=== PATIENT | male | born 1985 | race Caucasian/White ===

== ENCOUNTER 2024-12-16 22:06 | Emergency (ER) | payer OTHER, SELFPAY ==
[2024-12-16 22:07] VITALS: BP 132/85; PULSE 84; RESP 16; TEMP 36.6; O2SAT 98; BMI 29.4
--- NOTE | 2024-12-16 22:25 | CT_ITS ---
PROCEDURE: CT of the abdomen/pelvis with IV contrast. REASON FOR EXAM: Back trauma. Fell down steps 2 days ago. Right sided back pain. TECHNIQUE: After the intravenous administration of 80 cc Isovue 370, contiguous axial CT images were obtained through the abdomen/pelvis. Sagittal and coronal reformats were created. COMPARISON: None available FINDINGS: The lumbar and lower thoracic vertebral bodies are intact. Central spinal canal detail is limited. Proximal femurs are intact. Mild degenerative changes in the hip joints. No displaced pelvic fracture. Minimally displaced fractures of the right L2 and L3 transverse processes. The included lower ribs are intact. Heart is not enlarged. No sizable pericardial effusion. Lower lungs clear. The abdominal aorta is normal in caliber. No abdominal/pelvic adenopathy or ascites. No large abdominal wall defect. Tiny fat containing umbilical hernia. No focal abnormality of the urinary bladder. No abnormally dilated bowel segments or free intraperitoneal air. Scattered patchy wall thickening of the colon may be due to lack of distention versus peristalsis or chronic diverticular disease. Moderate stool in the colon. Appendicoliths are present. No findings of acute appendicitis. Patchy wall thickening of the stomach may be due to lack of distention versus peristalsis. No calcified gallstones or abnormal dilation of the biliary tree. 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 The liver, adrenal glands, spleen, and pancreas show no specific abnormality. The kidneys are symmetric in size and enhancement. No solid renal mass or evidence of parenchymal injury. CT/Abdomen/Pelvis W IV Cont ONLY IMPRESSION: Minimally displaced fractures of the right L2 and L3 transverse processes. No lumbar or lower thoracic vertebral body fracture. No solid organ injuries or free intraperitoneal air. Appendicoliths are present. No evidence of acute appendicitis. Lower ribs are intact. One or more dose reduction techniques were used (e.g., Automated exposure contr ol, adjustment of the mA and/or kV according to patient size, use of iterative reconstruction technique). Reading Location: [facility]
--- NOTE | 2024-12-16 22:26 | EDS_ITS ---
HPI History of Present Illness Chief Complaint: Fall Informant: patient and spouse/S.O. Narrative Narrative: Mechanical fall 2 days ago going down concrete steps. Slippery. No head injuries. Pain injury right flank. No urinary symptoms no hematuria. Pain with movement. Using ibuprofen Advil last dose this morning. No anticoagulation medicines. Prior similar symptoms: No PFSH PFSH Medical History no medical history Home Medications ?Medication ?Instructions ?Recorded ?Last Taken ?Type No Known/Unobtainable [No Known 7 Unknown History Home Medications] Allergy/AdvReac Type Severity Reaction Status Date / Time bee pollen Allergy Anaphylaxis Verified 12/16/24 22:10 ranitidine (From Zantac) Allergy Nausea/Vom/ Verified 12/16/24 22:10 Diarrhea Social History Smoking Status: Never smoker ROS ROS ED Constitutional Constitutional ED: Denies chills, fever(s) or sweats ENT ENT ED: Denies sore throat Cardiovascular Cardiovascular: Denies chest pain, leg edema, palpitations or racing heartbeat Respiratory/Chest Respiratory/Chest: Denies cough, dyspnea or dyspnea on exertion Gastrointestinal Gastrointestinal: Denies abdominal pain, diarrhea, nausea or vomiting Genitourinary Genitourinary ED: Denies dysuria, hematuria or urinary frequency Musculoskeletal Musculoskeletal: Reports back pain; Denies extremity pain or neck pain Integumentary Denies rash or wounds Neurologic Neurologic: Denies headache(s), paresthesias or weakness EXAM Physical Exam Const Vital Signs: 12/16/24 22:07 12/16/24 22:34 Temperature 97.9 F Temperature Source Temporal Pulse Rate 84 Respiratory Rate 16 Respiratory Effort Normal Non-Labored Respiratory Depth Normal Respiratory Pattern Normal Blood Pressure 132/85 H Blood Pressure Mean 100 Pulse Ox 98 Oxygen Delivery Method Room Air Room Air Positive well nourished and well developed General Appearance ED: well developed HEENT Reports moist mucous membranes normocephalic and atraumatic Eyes General Eye ED: Yes normal appearance of both eyes Neck full ROM Chest Wall Chest: Negative for tenderness Resp normal respiratory effort and normal air movement Effort and Inspection: symmetric chest movement; Negative for respiratory distress Cardio regular rate, regular rhythm and no murmurs Peripheral Pulses: pulses 2+ throughout GI normal to inspection, nondistended, normoactive bowel sounds and non-tender Palpation: Negative for guarding or rebound tenderness present Back/Spine Back/Spine Narrative: No midline tenderness there is tender palpation right flank below the kidney region. No ecchymosis noted. Extremity normal to inspection General Extremety ED: Negative for edema or tenderness General Extremity: Negative for edema Neuro oriented x3 and no sensory deficits noted Sensorium / Orientation: awake and alert Skin no rashes or lesions noted and no wounds MDM MDM MDM Narrative Medical decision making narrative: Interventions / MDM: Differential diagnosis: Sprain fracture Diagnosis considered but do not suspect: Organ injury however CT negative. My EKG interpretation: N/A Imaging independently reviewed and interpreted by myself: CT scan abdomen pelvis IV contrast: Nondisplaced right L2-L3 transverse process fracture. No organ injury. Appendicolith noted. [employer] SALESPERSON shunt tubing noted. External documents reviewed: N/A Test considered but not ordered:N/A ED course: Mechanical fall direct injury low right side of the back. Denies any hematuria. With mechanism of injury, contrast IV scan abdomen pelvis for trauma rule out. Basic labs obtained. He declines any medications. 2340: Labs stable urine negative. CT scan on displaced L2-L3 transverse process fracture. Appendicolith noted. No abdominal pain. Discussed findings, he declines any stronger pain medications. Will continue Advil. He will be given follow-up with spine. All questions were answered. Re-evaluation: stable Disposition discussed with patient/family/significant other: Patient and spouse Case discussed with consulting clinician: N/A This note was generated with [employer] dictation software. It may contain incorrect words, spelling, and punctuation that were not noted in checking the note before signing. Lab Data Attestation: I reviewed the patient's lab results. Labs: Laboratory Results - last 24 hr 12/16/24 12/16/24 21:43 22:40 WBC 8.1 RBC 4.95 Hgb 15.5 Hct 43.9 MCV 88.7 MCH 31.3 MCHC 35.3 RDW Std Deviation 41.1 RDW Coeff of Sushila 12.6 Plt Count 279 MPV 10.9 Immature Gran % (Auto) 0.400 Neut % (Auto) 59.6 Lymph % (Auto) 30.8 Wolfe % (Auto) 7.3 Eos % (Auto) 1.5 Baso % (Auto) 0.4 Absolute Neuts (auto) 4.9 Absolute Lymphs (auto) 2.50 Nucleated RBC % 0 Sodium 141 Potassium 3.5 Chloride 105 Carbon Dioxide 31.0 Anion Gap 5 BUN 10 Creatinine 1.07 Estim Creat Clear Calc 101.99 Est GFR (MDRD) Af Amer 98 Est GFR (MDRD) Non-Af 81 BUN/Creatinine Ratio 9.3 L Glucose 95 Calcium 8.9 Urine Color Yellow Urine Clarity Clear Urine pH 6.0 Ur Specific Dewey 1.015 Urine Protein Negative Urine Glucose (UA) Normal Urine Ketones Negative Urine Occult Blood Negative Urine Nitrite Negative Urine Bilirubin Negative Urine Urobilinogen Normal Ur Leukocyte Esterase Negative Urine RBC 0 SEEN Urine WBC 0 SEEN Ur Squamous Epith Cells 0 SEEN Urine Bacteria RARE Urine Mucus 0 SEEN Radiography Diagnostic Testing: Clinical Impression(s) from Imaging Studies Abdomen/Pelvis CT 12/16/24 22:25 IMPRESSION: Minimally displaced fractures of the right L2 and L3 transverse processes. No lumbar or lower thoracic vertebral body fracture. No solid organ injuries or free intraperitoneal air. Appendicoliths are present. No evidence of acute appendicitis. Lower ribs are intact. One or more dose reduction techniques were used (e.g., Automated exposure control, adjustment of the mA and/or kV according to patient size, use of iterative reconstruction technique). Reading Location: [facility] Discharge Plan Triage Chief Complaint: Fall ED Provider: Terry Burger Dx/Rx/DC Orders Clinical Impression: Fall, Fracture of transverse process of lumbar vertebra Instructions: ED Transverse Process Fracture Prescriptions: No Action No Known Home Medications Primary Care Provider: Care Physician,No Primary Referrals: Alireza Ramires MD [Med Staff - Active Staff] - 1-2 Weeks NOT,DEFINED [Non-Staff] - Activity Restrictions/Additional Instructions: CT scan positive for nondisplaced L2 and L3 right transverse process fracture. No other injuries noted. Continue Tylenol and or Advil every 6 hours. Follow- up with spine. Print Language: Mongolian Disposition Disposition: Home, Self Care
[2024-12-16 22:49] LABS: Mucous, Urine 0 SEEN /hpf (<or=2+); Squamous Epithelial Cells - UA 0 SEEN /hpf (0-5); White Blood Cells 0 SEEN /hpf (0-5)
[2024-12-16 22:51] LABS: Color, Urine Yellow (Yellow); Glucose, Dipstick Normal (Normal); Ketone-Dipstick Negative (Negative); Leukocyte Esterase-Dipstick Negative /ul (Negative); Nitrite-Dipstick Negative (Negative); Occult Blood-Urine Negative /ul (Negative); Protein-Dipstick Negative (Negative); Specific Gravity, Urine 1.015 (1.002-1.030); Urine Bilirubin Dipstick Negative (Negative); Urine Clarity Clear (Clear); Urine Urobilinogen Normal (Normal)
[2024-12-16 22:52] LABS: Absolute Neutrophil Count 4.9 X10^3/uL (2.0-7.7); Basophil# 0.03 X10^3/uL; Basophil% 0.4 % (0-1); Eosinophil# 0.12 X10^3/uL; Eosinophils% 1.5 % (0-5); Hematocrit 43.9 % (40-54); Hemoglobin 15.5 g/dL (13.0-16.5); Lymphocyte % 30.8 % (19-41); Mean Corp Hgb Conc 35.3 g/dL (32-36); Mean Corpuscular Hgb 31.3 pg (27.0-32.0); Mean Corpuscular Volume 88.7 fL (80-94); Mean Platelet Vol. 10.9 fl (6.2-12.0); Monocyte# 0.59 X10^3/uL; Monocyte% 7.3 % (0-10); NRBC Flagged by Analyzer 0 % (0-5); Neutrophil # 4.86 X10^3/uL (2.7-7.7); Neutrophil % 59.6 % (47-70); Platelet Count 279 K/mm3 (150-450); RBC Distribution Width CV 12.6 % (11.6-14.6); RBC Distribution Width SD 41.1 fl (35.1-43.9); Red Blood Count 4.95 M/mm3 (4.6-6.2); White Blood Count 8.1 K/mm3 (4.4-11.0)
[2024-12-16 23:03] LABS: Anion Gap 5 (5-15); BUN 10 mg/dL (7-18); BUN/Creat Ratio 9.3 RATIO (10-20); Calcium,Total 8.9 mg/dL (8.5-10.1); Chloride 105 mmol/L (98-107); Creatinine, Serum 1.07 mg/dL (0.70-1.30); EST Glomerular Filtration Rate 81 mL/min (>60); Est Glom Filt Rate - Afr Amer 98 mL/min (>60); Estimated Creatinine Clearance 101.99 ml/min; Glucose 95 mg/dL (74-106); Potassium 3.5 mmol/L (3.5-5.1); Sodium Level 141 mmol/L (136-145)
[2024-12-16 23:05] LABS: Bacteria RARE /hpf (None Seen); Red Blood Cells-Urine 0 SEEN /hpf (0-5)
[2024-12-16 23:53] VITALS: BP 132/85; PULSE 84; RESP 16; TEMP 36.6; O2SAT 98
== END 2024-12-16 23:55 | disposition home or self-care (01) ==
PROVIDERS: Emergency Provider Emergency Medicine; Visit Provider Emergency Medicine
DX: S32.029A Unspecified fracture of second lumbar vertebra, initial encounter for closed fracture (principal); S32.039A Unspecified fracture of third lumbar vertebra, initial encounter for closed fracture; W10.9XXA Fall (on) (from) unspecified stairs and steps, initial encounter; K38.1 Appendicular concretions
CPT/HCPCS: 74177; 80048; 81001; 85025; 99283; Q9967; A4216